=== PATIENT | female | born 1955 | race Caucasian/White ===

== ENCOUNTER 2018-04-27 07:47 | Day surgery (SDC) | payer OTHER ==
[~2018-04-27 07:47] MED LIST: ASPI325 PO; CHOL10002 PO; FISH1000 PO; GEMF600 PO; Glucophage1000 MG PO; LOSHYD100 PO; LOVA20 PO; Multivitamin1 EAC1 PO; TRAM50 PO
== END 2018-04-27 22:42 | disposition home or self-care (01) ==
LOC: MOI US 07:47
PROC: 0HBU3ZX Excision of Left Breast, Percutaneous Approach, Diagnostic (ICD-10-PCS; principal; 2018-04-27)
DX: C50.312 Malignant neoplasm of lower-inner quadrant of left female breast (principal); Z17.0 Estrogen receptor positive status [ER+]
CPT/HCPCS: 19083; 19084; 77065; 88305; 88360; A4648

== ENCOUNTER → 2018-12-28 | Outpatient (CLI) | payer OTHER ==
[2018-12-28 20:26] LABS: Anion Gap 7 mmol/L (6-16); Blood Urea Nitrogen 19 mg/dL (8-24); Bun/Creatinine Ratio 22.4 (12.0-20.0); CHOL/HDL RATIO 3.5; CO2, Blood 28 mmol/L (21-32); Calcium, Blood 10.1 mg/dL (8.5-10.1); Chloride, Blood 104 mmol/L (98-108); Cholesterol 161 mg/dL (50-200); Creatinine, Blood 0.85 mg/dL (0.40-1.00); Glomerular Filtration Rate >60 (60-); Glucose, Blood 94 mg/dL (70-99); HDL Cholesterol 46 mg/dL (>39); LDL/HDL RATIO 1.4; Low Density Lipoprotein Chol 66 mg/dL (0-110); Potassium, Blood 3.7 mmol/L (3.5-5.5); Sodium, Blood 139 mmol/L (136-145); Triglycerides 243 mg/dL (30-160); Very Low Density Lipoprot Chol 48 mg/dL (6-32)
== END | disposition home or self-care (01) ==
LOC: LAB 19:44 → LAB SHORT 19:44
PROVIDERS: Physician Assistant
DX: E11.9 Type 2 diabetes mellitus without complications (principal); E78.5 Hyperlipidemia, unspecified
CPT/HCPCS: 80048; 80061; 83036

== ENCOUNTER → 2020-08-04 | Outpatient (CLI) | payer OTHER | END | disposition home or self-care (01) | LOC: PLD 09:09 → LAB SHORT 09:09 | DX: N18.30 Chronic kidney disease, stage 3 unspecified (principal); D63.1 Anemia in chronic kidney disease; E83.52 Hypercalcemia; M10.9 Gout, unspecified; N25.81 Secondary hyperparathyroidism of renal origin; R76.9 Abnormal immunological finding in serum, unspecified; R94.5 Abnormal results of liver function studies; R94.6 Abnormal results of thyroid function studies; E55.9 Vitamin D deficiency, unspecified; E27.0 Other adrenocortical overactivity | CPT/HCPCS: 86335 ==

== ENCOUNTER 2020-08-22 00:06 | Day surgery (SDC) | payer OTHER ==
[~2020-08-22 00:06] MED LIST changes: -Glucophage1000 MG PO; +LOSARTAN-HCTZ1 EACH PO; -LOSHYD100 PO; +METF500 PO
[2020-08-22] MEDS ORDERED: VITAMIN D32000 UNI1 PO (09:38)
[2020-08-22] MEDS ORDERED: CYCL10 PO (09:44)
[2020-08-22] MEDS ORDERED: GABA300 PO ×2 (09:46→09:47)
== END 2020-08-22 10:06 | disposition home or self-care (01) ==
LOC: ATC 00:06
DX: E27.40 Unspecified adrenocortical insufficiency (principal); I12.9 Hypertensive chronic kidney disease with stage 1 through stage 4 chronic kidney disease, or unspecified chronic kidney disease; E11.22 Type 2 diabetes mellitus with diabetic chronic kidney disease; N18.2 Chronic kidney disease, stage 2 (mild); N25.81 Secondary hyperparathyroidism of renal origin; D63.1 Anemia in chronic kidney disease; E11.21 Type 2 diabetes mellitus with diabetic nephropathy; E55.9 Vitamin D deficiency, unspecified; Z79.82 Long term (current) use of aspirin; Z79.84 Long term (current) use of oral hypoglycemic drugs; Z79.899 Other long term (current) drug therapy; Z88.5 Allergy status to narcotic agent
CPT/HCPCS: 80400; 82533; 96372; J0834

== ENCOUNTER 2020-12-05 13:57 | Day surgery (SDC) | payer OTHER, SELFPAY ==
[~2020-12-05] VITALS: Ht 162.6 cm; Wt 106.7 kg
[~2020-12-05 13:57] MED LIST changes: +CYCL10 PO; +GABA300 PO; +VITAMIN D32000 UNI1 PO
[2020-12-05] MEDS ORDERED: LOSA50 (15:06)
[2020-12-05] MEDS ORDERED: MICROZIDE12.5 M1 (15:06)
[2020-12-05] MEDS ORDERED: POLY500 (15:06)
[2020-12-05] MEDS ORDERED: LETR2.5 (15:07)
== END 2020-12-05 17:30 | disposition home or self-care (01) ==
LOC: ORSCSDS 13:57
PROVIDERS: Orthopaedic Surgery
PROC: 0SBD4ZZ Excision of Left Knee Joint, Percutaneous Endoscopic Approach (ICD-10-PCS; principal; 2020-12-05 15:00)
DX: S83.242A Other tear of medial meniscus, current injury, left knee, initial encounter (principal); M23.201 Derangement of unspecified lateral meniscus due to old tear or injury, left knee; M65.9 Synovitis and tenosynovitis, unspecified; M94.262 Chondromalacia, left knee; I10 Essential (primary) hypertension; E78.5 Hyperlipidemia, unspecified; G47.33 Obstructive sleep apnea (adult) (pediatric); Z87.891 Personal history of nicotine dependence; E11.9 Type 2 diabetes mellitus without complications; E66.01 Morbid (severe) obesity due to excess calories; Z68.41 Body mass index [BMI] 40.0-44.9, adult; Z79.84 Long term (current) use of oral hypoglycemic drugs; Z79.899 Other long term (current) drug therapy
CPT/HCPCS: 82947; A9270; J0171; J0690; J1100; J1885; J2250; J2405; J2704; J2795; J3010; J7120

== ENCOUNTER 2021-03-27 06:42 | Day surgery (SDC) | payer OTHER ==
[~2021-03-27] VITALS: Ht 162.6 cm; Wt 108.0 kg
[~2021-03-27 06:42] MED LIST changes: +LETR2.5; +LOSA50; +MICROZIDE12.5 M1; +POLY500
[2021-03-27] MEDS ORDERED: CALCIUM 600 +1 EAC7 PO (07:10)
== END 2021-03-27 08:51 | disposition home or self-care (01) ==
LOC: ORSCSDS 06:42
PROVIDERS: Orthopaedic Surgery
PROC: 01N50ZZ Release Median Nerve, Open Approach (ICD-10-PCS; principal; 2021-03-27 08:00)
DX: G56.01 Carpal tunnel syndrome, right upper limb (principal); E11.9 Type 2 diabetes mellitus without complications; G47.30 Sleep apnea, unspecified; E78.00 Pure hypercholesterolemia, unspecified; I10 Essential (primary) hypertension; F32.9 Major depressive disorder, single episode, unspecified; Z87.891 Personal history of nicotine dependence; Z79.84 Long term (current) use of oral hypoglycemic drugs; Z79.899 Other long term (current) drug therapy
CPT/HCPCS: 82947; J0690; J2704; J7120

== ENCOUNTER 2022-01-11 06:01 | Day surgery (SDC) | payer OTHER ==
[~2022-01-11] VITALS: Ht 162.6 cm; Wt 100.4 kg
[~2022-01-11 06:01] MED LIST changes: +CALCIUM 600 + VIT D PO; -LETR2.5; +LETR2.5 PO; -LOSA50; +LOSA50 PO; -MICROZIDE12.5 M1; +MICROZIDE12.5 M1 PO; +Voltaren100 GM TOP
[2022-01-11] MEDS ORDERED: LORA10ER PO (06:37)
--- NOTE | 2022-01-11 07:12 | NUR ---
History, Chart, Medications and Allergies reviewed before start of procedure. Patient confirms NPO status and agrees with scheduled surgery. Lungs clear T/O to Auscultation.
--- NOTE | 2022-01-11 08:23 | NUR ---
ARRIVED FROM OR RECIEVED PATIENT AND REPORTS VSS DRSSING NEAR LEFT ARMPIT INTACT. DENIES PAIN
--- NOTE | 2022-01-11 08:56 | NUR ---
PT TOLERATING PO FLUIDS AND FOOD, SITTING UP IN BED. PT HAS ONE INCISION SITE IN LEFT AXILLA THAT IS COVERED WITH 3 INCHES OF GAUZE AND WINDOW TAPE THAT IS CLEAN, DRY AND INTACT. NO DRAINAGE, SWELLING, INFLAMMATION NOTED.
--- NOTE | 2022-01-11 09:15 | NUR ---
INCISION DRESSING IN LEFT AXILLA IS CLEAN, DRY AND INTACT. NO DRAINING, INFLAMMATION NOTED.
--- NOTE | 2022-01-11 09:24 | NUR ---
Patient up to Ambulate independently. Gait steady. Discharge instructions reviewed with patient. Patient verbalizes understanding. Copy given to patient to take home. Dressing to procedure site clean, dry, intact with no visible drainage, swelling, erythema or bruising noted. Patient States Post-Procedure ride home has been arranged. Discharged via wheelchair to private car for ride home. ALL BELONGINGS RETURNED TO PATIENT.
== END 2022-01-12 22:38 | disposition home or self-care (01) ==
LOC: ORSCMMR 06:01 → ORD 07:30 → ORSCMMR 07:30
PROVIDERS: Surgery
PROC: 0JB60ZZ Excision of Chest Subcutaneous Tissue and Fascia, Open Approach (ICD-10-PCS; principal; 2022-01-11 07:30)
DX: L72.8 Other follicular cysts of the skin and subcutaneous tissue (principal); G47.33 Obstructive sleep apnea (adult) (pediatric); E66.9 Obesity, unspecified; Z68.38 Body mass index [BMI] 38.0-38.9, adult; E11.22 Type 2 diabetes mellitus with diabetic chronic kidney disease; I12.9 Hypertensive chronic kidney disease with stage 1 through stage 4 chronic kidney disease, or unspecified chronic kidney disease; N18.30 Chronic kidney disease, stage 3 unspecified; Z79.899 Other long term (current) drug therapy
CPT/HCPCS: 82947; 88304; A9270; J0690; J1100; J2250; J2405; J2704; J3010; J7120

== ENCOUNTER 2022-09-18 07:58 | Day surgery (SDC) | payer OTHER ==
[~2022-09-18] VITALS: Ht 162.6 cm; Wt 106.6 kg
[~2022-09-18 07:58] MED LIST changes: +LORA10ER PO
[2022-09-18] MEDS ORDERED: GABA800 PO (08:36)
[2022-09-18] MEDS ORDERED: CITALOPRAM HBR10 MG PO (08:37)
[2022-09-18] MEDS ORDERED: ZOLEDRONIC ACID4 M1 (08:39)
--- NOTE | 2022-09-18 09:33 | NUR ---
[facility] MG VERSED GIVEN IV BY DR STROUD PRE-PROCEDURAL. 0916: TIME-OUT COMPLETED. 0917: 10 CC 2% LIDOCAINE AND EPINEPHRINE 1:100,000 GIVEN IN L WRIST BY DR STROUD USING SONOSITE.
== END 2022-09-18 10:25 | disposition home or self-care (01) ==
LOC: ORSCSDS 07:58
PROVIDERS: Orthopaedic Surgery
PROC: 01N54ZZ Release Median Nerve, Percutaneous Endoscopic Approach (ICD-10-PCS; principal; 2022-09-18 09:15)
DX: G56.02 Carpal tunnel syndrome, left upper limb (principal); G47.33 Obstructive sleep apnea (adult) (pediatric); E11.22 Type 2 diabetes mellitus with diabetic chronic kidney disease; I12.9 Hypertensive chronic kidney disease with stage 1 through stage 4 chronic kidney disease, or unspecified chronic kidney disease; N18.30 Chronic kidney disease, stage 3 unspecified; F41.8 Other specified anxiety disorders; M19.90 Unspecified osteoarthritis, unspecified site; E66.01 Morbid (severe) obesity due to excess calories; Z68.41 Body mass index [BMI] 40.0-44.9, adult; Z87.891 Personal history of nicotine dependence; Z79.84 Long term (current) use of oral hypoglycemic drugs; Z79.899 Other long term (current) drug therapy
CPT/HCPCS: 82947; J1885; J2250

== ENCOUNTER → 2023-03-25 | Outpatient (CLI) | payer OTHER ==
[~2023-03-25] MED LIST changes: +CITALOPRAM HBR10 MG PO; +GABA800 PO; +ZOLEDRONIC ACID4 M1
[2023-03-25 15:31] LABS: Adenovirus F 40/41 Not Detected (NOT DETECT); Astrovirus Not Detected (NOT DETECT); Campylobacter Sp Not Detected (NOT DETECT); Cryptosporidium Not Detected (NOT DETECT); Cyclospora Cayetanensis Not Detected (NOT DETECT); E. Coli O157 Not Detected (NOT DETECT); Entamoeba Histolytica Not Detected (NOT DETECT); Enteroaggregative E. coli-EAEC Not Detected (NOT DETECT); Enteropathogenic E. coli-EPEC Not Detected (NOT DETECT); Enterotoxigenic E. coli-ETEC Not Detected (NOT DETECT); Giardia Lamblia Not Detected (NOT DETECT); Norovirus GI/GII Not Detected (NOT DETECT); Plesiomonas Shigelloides Not Detected (NOT DETECT); Rotavirus A Not Detected (NOT DETECT); Salmonella Sp Not Detected (NOT DETECT); Sapovirus Not Detected (NOT DETECT); Shiga Toxin-prod E. coli-STEC Not Detected (NOT DETECT); Shigella/Enteroin E. coli-EIEC Not Detected (NOT DETECT); Vibrio Cholerae Not Detected (NOT DETECT); Vibrio Sp Not Detected (NOT DETECT); Yersinia Enterocolitica Not Detected (NOT DETECT)
== END ==
LOC: LAB SHORT 10:15 → LAB 10:15
PROVIDERS: Family Medicine
DX: K52.9 Noninfective gastroenteritis and colitis, unspecified (principal)
CPT/HCPCS: 87338; 87507

== ENCOUNTER 2023-07-30 08:36 | Day surgery (SDC) | payer OTHER ==
[~2023-07-30] VITALS: Ht 162.6 cm; Wt 106.6 kg
[~2023-07-30 08:36] MED LIST changes: +THERA-D2000 UNIT PO
[2023-07-30 09:50] VITALS: BP 141/62
--- NOTE | 2023-07-30 09:54 | NUR ---
Ambulatory in Day Surgery History, Chart, Medications and Allergies reviewed before start of procedure. Pre-Op teaching done. Pt verbalizes understanding. Patient States Post-Procedure ride home has been arranged.
--- NOTE | 2023-07-30 10:16 | NUR ---
07/30/23 1016 [place] [place] History, Chart, Medications and Allergies reviewed before start of procedure. See Anesthesia record
[2023-07-30 11:00] VITALS: BP 143/97
[2023-07-30 11:15] VITALS: BP 148/79
--- NOTE | 2023-07-30 11:28 | NUR ---
PT FEELING WELL. DENIES PO FLUIDS AND FOOD. Discharge instructions reviewed with patient. Patient verbalizes understanding. Copy given to patient to take home. Patient States Post-Procedure ride home has been arranged.
[2023-07-30 11:37] VITALS: BP 154/61
--- NOTE | 2023-07-30 11:39 | NUR ---
Patient up to Ambulate independently. Gait steady. Discharged via wheelchair to private car for ride home.
== END 2023-07-30 11:40 | disposition home or self-care (01) ==
LOC: ORSCMMR 08:36 → ORD 09:45 → ORSCMMR 11:40
PROVIDERS: Internal Medicine Gastroenterology
PROC: 0DBN8ZX Excision of Sigmoid Colon, Via Natural or Artificial Opening Endoscopic, Diagnostic (ICD-10-PCS; principal; 2023-07-30 09:45)
PROC: 0DBK8ZX Excision of Ascending Colon, Via Natural or Artificial Opening Endoscopic, Diagnostic (ICD-10-PCS; principal; 2023-07-30 09:45)
PROC: 0DBH8ZX Excision of Cecum, Via Natural or Artificial Opening Endoscopic, Diagnostic (ICD-10-PCS; principal; 2023-07-30 09:45)
PROC: 0DBL8ZX Excision of Transverse Colon, Via Natural or Artificial Opening Endoscopic, Diagnostic (ICD-10-PCS; principal; 2023-07-30 09:45)
PROC: 0DBC8ZX Excision of Ileocecal Valve, Via Natural or Artificial Opening Endoscopic, Diagnostic (ICD-10-PCS; principal; 2023-07-30 09:45)
DX: K52.9 Noninfective gastroenteritis and colitis, unspecified (principal); K63.5 Polyp of colon; Z85.3 Personal history of malignant neoplasm of breast; K64.8 Other hemorrhoids; K57.30 Diverticulosis of large intestine without perforation or abscess without bleeding; I12.9 Hypertensive chronic kidney disease with stage 1 through stage 4 chronic kidney disease, or unspecified chronic kidney disease; E11.22 Type 2 diabetes mellitus with diabetic chronic kidney disease; F41.9 Anxiety disorder, unspecified; N18.30 Chronic kidney disease, stage 3 unspecified; F32.A Depression, unspecified; E78.5 Hyperlipidemia, unspecified; G47.30 Sleep apnea, unspecified; F43.10 Post-traumatic stress disorder, unspecified; Z87.891 Personal history of nicotine dependence; E66.01 Morbid (severe) obesity due to excess calories; Z68.41 Body mass index [BMI] 40.0-44.9, adult; Z79.84 Long term (current) use of oral hypoglycemic drugs; Z79.899 Other long term (current) drug therapy
CPT/HCPCS: 82947; 88305; J2704; J7120